=== PATIENT | male | born 2000 | race Two or more races ===

== ENCOUNTER → 2024-01-17 | Emergency (ER) | payer OTHER ==
[~2024-01-17] VITALS: Ht 170.2 cm; Wt 82.1 kg
[~2024-01-17] MED LIST: AMOX-430 PO; HALOPERIDOL LACTATE INJ 5 MG/ML VIAL ONE; IBUP-1953 PO; KETO10TA2 PO; KETOROLAC TROMETHAMINE INJ 30 MG/ML VIAL ONE; METO-295 PO; METOCLOPRAMIDE HCL 10 MG/2 ML VIAL ONE; SUMA100T PO; SUMATRIPTAN SUCCINATE 6 MG/0.5 ML VIAL SQ ONE; dexaMETHasone SOD PHOSPHATE 1 ML ONE; diphenhydrAMINE HCL 50 MG/ML VIAL ONE
[2024-01-17] MEDS: IV NS 0.9% 1,000 ML BAG IV ONE (14:42)
[2024-01-17] MEDS: METOCLOPRAMIDE HCL 10 MG/2 ML VIAL IV ONE (15:09)
[2024-01-17] MEDS: SUMATRIPTAN SUCCINATE 6 MG/0.5 ML VIAL SQ ONE (15:09)
[2024-01-17] MEDS: diphenhydrAMINE HCL 50 MG/ML VIAL IV ONE (15:09)
[2024-01-17] MEDS: dexaMETHasone SOD PHOSPHATE 10 MG/ML VIAL IV ONE (16:31)
[2024-01-17] MEDS: HALOPERIDOL LACTATE INJ 5 MG/ML VIAL IV ONE (16:32)
[2024-01-17] MEDS: KETOROLAC TROMETHAMINE INJ 30 MG/ML VIAL IV ONE (16:32)
[2024-01-17 17:19] VITALS: BP 129/68; TEMP 98.4; O2SAT 100
== END | disposition home or self-care (01) ==
LOC: ER 13:42
DX: G43.909 Migraine, unspecified, not intractable, without status migrainosus (principal); Z79.899 Other long term (current) drug therapy
CPT/HCPCS: 99285; 96374; 96375; 70450; 96361; 96372; J1100; J1200; J1630; J3030; J2765; J1885; J7030

== ENCOUNTER 2024-01-18 19:02 | Emergency (ER) | payer OTHER ==
[~2024-01-18] VITALS: Ht 170.2 cm; Wt 81.6 kg
[~2024-01-18 19:02] MED LIST changes: -HALOPERIDOL LACTATE INJ 5 MG/ML VIAL ONE; -KETOROLAC TROMETHAMINE INJ 30 MG/ML VIAL ONE; -METOCLOPRAMIDE HCL 10 MG/2 ML VIAL ONE; -SUMATRIPTAN SUCCINATE 6 MG/0.5 ML VIAL SQ ONE; -dexaMETHasone SOD PHOSPHATE 1 ML ONE; -diphenhydrAMINE HCL 50 MG/ML VIAL ONE
[2024-01-18 19:20] VITALS: BP 138/89; TEMP 98.3
[2024-01-18] MEDS ORDERED: LORAZEPAM 1 MG TABLET ONE (19:51)
[2024-01-18] MEDS: LORAZEPAM 1 MG TABLET PO ONE (19:51)
[2024-01-18 20:46] VITALS: O2SAT 98
== END 2024-01-18 20:47 | disposition home or self-care (01) ==
LOC: ER 19:04
DX: F41.0 Panic disorder [episodic paroxysmal anxiety] (principal); G43.909 Migraine, unspecified, not intractable, without status migrainosus

== ENCOUNTER 2024-05-14 14:24 | Emergency (ER) | payer OTHER ==
[~2024-05-14] VITALS: Ht 170.2 cm; Wt 96.6 kg
[2024-05-14] MEDS ORDERED: HYDROCODONE/APAP 5/325MG TABLET ONE ×2 (15:59→18:16)
[2024-05-14] MEDS: HYDROCODONE/APAP 5/325MG TABLET PO ONE ×2 (16:01→18:18)
[2024-05-14] MEDS ORDERED: HYDR-3980 PO (17:30)
[2024-05-14 18:23] VITALS: BP 128/78; TEMP 98.2; O2SAT 96
== END 2024-05-14 18:25 | disposition home or self-care (01) ==
LOC: ER 14:24
DX: S62.161A Displaced fracture of pisiform, right wrist, initial encounter for closed fracture (principal); J45.909 Unspecified asthma, uncomplicated; F17.200 Nicotine dependence, unspecified, uncomplicated; W22.01XA Walked into wall, initial encounter; Y93.89 Activity, other specified; Y92.89 Other specified places as the place of occurrence of the external cause; Y99.8 Other external cause status
CPT/HCPCS: 73110; 73130-TC